=== PATIENT | male | born 1975 | race Caucasian/White ===

== ENCOUNTER → 2024-08-18 09:26 | Outpatient (REF) | payer SELFPAY | LOC: RAD 09:26 | PROVIDERS: ATTENDING PHYSICIAN Nurse Practitioner | DX: E78.2 Mixed hyperlipidemia (principal) | CPT/HCPCS: 75571 ==

== ENCOUNTER 2025-05-26 22:54 | Observation (INO) | payer OTHER, SELFPAY ==
[2025-05-26] VITALS (13 sets, daily range): BP systolic 119–170; BP diastolic 73–108; BMI 38.3
[2025-05-26 18:17] LABS: Hematocrit 51.6 % (39.0-52.0); Hemoglobin 17.2 g/dL (13.0-18.0); Mean Corp Hgb Conc. 33.3 g/dL (33.0-37.0); Mean Corpuscular Volume 82.0 fL (80.0-94.0); Nucleated Red Blood Cells % 0 % (-); Platelet Count 197 10^3/uL (130-400); Red Cell Dist. Width 16.0 % (11.5-14.5)
[2025-05-26 18:26] LABS: APTT 24.8 Sec (23.4-35.0); INR 0.92; PT 12.8 Sec (11.4-14.6)
[2025-05-26 18:33] LABS: ALT (SGPT) 38 U/L (0-50); AST (SGOT) 23 U/L (17-59); Albumin 4.7 g/dl (3.5-5.0); Alkaline Phosphatase 42 U/L (38-126); Blood Urea Nitrogen 14 mg/dl (9-20); Calcium 9.4 mg/dl (8.4-10.2); Carbon Dioxide 28 mmol/L (22-30); Chloride 103 mmol/L (98-107); Glucose 95 mg/dl (70-99); Potassium 4.2 mmol/L (3.5-5.1); Sodium 138 mmol/L (135-145); Total Protein 6.9 g/dl (6.3-8.2); eGFR > 60.00
--- NOTE | 2025-05-26 18:40 | ED.CVA ---
History of Present Illness
General
Chief Complaint: CVA/TIA Symptoms
Source: patient
Exam Limitations: none
Time Seen by Provider: 05/26/25 18:11
Nursing documentation reviewed up to this point in time: agreed with
Onset of Stroke Symptoms
Onset of symptoms known: Yes
Date of onset of symptoms: 05/26/25
Time of onset of symptoms: 15:00
History of Present Illness
History of Present Illness:
Patient with history of hypertension, presents to ED secondary to sudden onset of dizziness around 3 PM while he was at home on a conference call. Approximately 30 minutes afterwards, he started to feel numbness on the right side of his face and
right arm. Denies headache. Denies weakness. Denies difficulty with speech or swallowing. Denies difficulty with ambulation. Numbness sensation has been intermittent since onset, but never gone away completely. Denies previous history of
similar symptoms. Patient had cold-like symptoms last week.
Past History
Past History
ED Past Medical History: None
ED Past Surgical History: None
Social History
Tobacco: Non-smoker
Alcohol: None
Drug: None
Personal:
Living: with family
Employment: Employed
Family History
Family History: Hypertension
Review of Systems
Review of Systems
Allergies reviewed?: Yes
All Other Systems: ROS reviewed and negative except as documented in HPI and ROS
Constitutional: Reports no symptoms
Respiratory: Reports no symptoms
Cardiac: Reports no symptoms
ABD/GI: Reports no symptoms
: Reports no symptoms
Musculoskeletal: Reports no symptoms
Skin: Reports no symptoms
Neurological: Reports dizzy and numbness; Denies headache or weakness
Phy Exam
Physical Exam
Physical Exam:
Physical Exam
General: no apparent distress, not acutely ill. afebrile. overweight
Head: nc/at. eomi
Neck: supple. no meningeal signs.
Heart: s1/s2 regular rate and rhythm
Lungs: no acute respiratory distress. clear bilaterally
Abdomen: normal bowel sounds. not tender.
Neuro: alert and oriented x 3. no focal motor deficit. decreased sensation Left face/LUE. normal speech
Skin: no rash
Psychiatric: well kept. interactive and cooperative
Extremities: no edema. no calf tenderness.
Course
Orders/Labs/Results
Orders:
Orders
05/26/25 18:08
Complete Blood Count/With Diff Urgent
Comprehensive Metabolic Panel Urgent
PTT Urgent
Prothrombin Time Urgent
05/26/25 18:09
CT HEAD STROKE ALERT W/o Cont Urgent
Comment:
Reason For Exam: right sided numbness
05/26/25 18:11
CT BRAIN PERF STROKE ALERT Urgent
Comment:
Reason For Exam: dizziness/right sided numbness
CT HEAD/NECK ANG STROKE ALERT Urgent
Comment:
Reason For Exam: dizziness/right sided numbness
05/26/25 18:12
Electrocardiogram (*1) Urgent
Reason for Study: TIA/Stroke
EKG- Treatment ONCE
05/26/25 19:20
Aspirin 325 mg PO NOW STA
Clopidogrel Bisulfate [Plavix] 600 mg PO NOW STA
05/26/25 22:02
Admit/Transfer Patient As Directed
Co-Sign Provider:
Level of Care: Observation services
Assign to:: Telemetry
Physician / Group: Elvis
Diagnosis: Dizziness / Numbness
Reason for Telemetry: CVA/TIA
Date to Stop Telemetry: 05/29/25
Time to Stop Telemetry: 11:00
05/26/25 22:03
PRN Pain Medication Management As Directed
May give lesser potent ordered pain med per pt: Yes
preference::
Protocol:: Medication orders for pain may be administered in a
manner that supports deferring to patient preference
when the pt is:
- Requesting an ordered lesser potent pain medication.
Least to most potent pain medications are defined
as: acetaminophen < NSAID < tramadol < opioids
(morphine, oxycodone, hydromorphone).
- Requesting a lesser dose of the same medication IF
ORDERED.
- Requesting a less intrusive route of administration
if both routes are prescribed by the provider (PO <
IV).
05/26/25 22:05
Code Status As Directed
Resuscitation Status: Full Code
05/26/25 23:24
Acetaminophen [Tylenol/Feverall] 650 mg RECTAL Q4HPRN PRN
Acetaminophen [Tylenol] 650 mg PO Q4HPRN PRN
05/26/25 23:24
Case Management Consult ONCE
Case Management Consult: Discharge Planning
Comment: stroke/tia
Consult Notification Routine
Specialty to Notify: Neurology
Date consulting provider notified: 05/27/25
Time consulting provider notified: 07:52
Notified:: Provider
Comment: tt
DIETARY IP CONSULT Routine
Reason for Consult: stroke/TIA
NEUROLOGY CONSULT Urgent
Consulting Provider: Carol Walters
Was physician already notified: No
Reason for consult: Dizziness / Numbness
Biology Lecturer Urgent
Activity As Directed
Activity Level: Out of Bed- Chair
NIH Stroke Scale As Directed
Directions: Per protocol
Comment: every shift and with any change in condition or mental status
Neurological Checks As Directed
Frequency: q4h
Additional Instructions:: q4h x 24h upon admission to the floor, then qshift & with any change in condition
and mental status
Patient Education As Directed
Type: Stroke education packet
Comment: provide to patient and family
Pneumatic Compression Sleeves As Directed
Type: Knee high
Swallow Screening CVA/TIA ONLY As Directed
Comment: NPO until swallowing screening completed
If patient FAILS swallow screening:: NPO, Speech Therapy consult, Aspiration Precautions
If patient PASSES swallow screening, diet:: Cholesterol Lowering
Sodium, 2 Gram
Above diet order entered?: Yes- passed screening
Vital Signs As Directed
Frequency: Per unit guidelines
Cpap [RESP] Routine
Patient to use own unit?: Yes
Ot Eval And Treat Routine
Pt Eval And Treat Routine
Activity Level: Out of Bed-Early Mobility
Speech Therapy Eval & Treat Routine
DX Deep Vein Thrombosis Video Routine
05/27/25 06:53
Basic Metabolic Panel IN AM
Cardiovascular Evaluation IN AM
Complete Blood Count/No Diff IN AM
Glycohemoglobin (HgbA1c) IN AM
Magnesium IN AM
05/27/25 08:00
Aspirin Chewable [Low Strength Aspirin] 81 mg PO DAILY
Clopidogrel Bisulfate [Plavix] 75 mg PO DAILY
Lisinopril [Zestril] 40 mg PO DAILY
05/27/25 18:00
Atorvastatin [Lipitor] 40 mg PO QPM
05/29/25 11:00
DC Protocol for Telemetry ONCE
Abnormal Lab Results
05/26/25
18:08
WBC 13.0 H 10^3/uL
(4.8-10.8)
RBC 6.29 H 10^6/uL
(4.70-6.10)
RDW 16.0 H %
(11.5-14.5)
MPV 11.5 H fL
(7.4-10.4)
Absolute Neuts (auto) 8.8 H 10^3/uL
(1.4-6.5)
Absolute Monos (auto) 1.1 H 10^3/uL
(0.1-0.6)
05/26/25 18:08
09/24/25 18:08
Vital Signs
Initial and Last Documented VS:
Initial Vital Signs
Pulse Resp BP Pulse Ox
78 18 168/94 98
05/26/25 18:06 05/26/25 18:06 05/26/25 18:06 05/26/25 18:06
Last Documented Vital Signs
Temp Pulse Resp BP Pulse Ox
97.5 F 62 16 148/95 97
05/27/25 07:25 05/27/25 07:42 05/27/25 07:25 05/27/25 07:42 05/27/25 07:25
MDM/Problems Addressed
MDM/Problems Addressed:
CT head: NAD.
Discussed with [place] stroke fellow (Teresa) - recommends starting patient on asa/plavix along with admission for cva workup. Does not recommend TnK
*Pulse Oximetry
SaO2: 97
Oxygen Mode of Delivery: Room air
Patient hypoxic: no
*EKG
Interpreted by ED Provider?: Yes
EKG Intrepretation Date: 05/26/25
Heart Rate: 73
Rate: normal
Rhythm: sinus
[place]: normal axis
*Critical Care Note
Total Time (30-74mins, 75-104mins- exclusive of procedures): Not Applicable
ED Attending Note
-
Portions of this chart may have been created with voice recognition software.� Occasional wrong word or��sound alike� substitutions may have occurred due to the inherent limitations of voice recognition software.
Discharge Plan
Departure
Patient Disposition: Admit
Date of Disposition: 05/26/25
Time of Disposition: 19:13
Admit to: Telemetry
Presentation/result/management discussed w/ accepting MD/DO: Hospitalist
Discharge Problem:
Acute CVA (cerebrovascular accident)
Interventions
Interventions:
*Risk Screen - Suicide Last Done: 05/26/25 18:14
*General Assessment Last Done: 05/26/25 18:14
*Neglect/Abuse Screening Last Done: 05/26/25 18:14
*ED- Fall Risk Assessment Last Done: 05/26/25 18:14
*ED COVID-19 Vaccine History Last Done: 05/26/25 18:14
*Nursing Disposition Last Done: 05/26/25 23:20
ED- Pulmonary Assessment Last Done: 05/26/25 18:14
ED- Neurological Assessment Last Done: 05/26/25 18:14
ED- Cardiac Assessment Last Done: 05/26/25 18:14
ED Swallowing Screen Last Done: 05/26/25 19:25
Discharge Date and Time
Discharge Date/Time: 05/26/25 23:20
[2025-05-26] MEDS: ASPIRIN 325 MG PO (19:26)
[2025-05-26] MEDS: PLAVIX 600 MG PO (19:26)
--- NOTE | 2025-05-26 21:49 | HPS.HSE ---
Addendum entered and electronically signed by Jackson Leal DO 05/26/25 23:58:
Patient seen and examined independently. Agree with findings and plan as set forth by Khushbu Carreno PA-C.
Patient is a 50y M with PMH significant for hypertension and obesity who presents to ED complaining of numbness and tingling of the R face and arm. Patient reports feeling 'dizzy' sensation - but no room spinning. No noted slurred speech or
word-finding difficulties. No vision changes. Mild headache. Patient denies any prior h/o similar symptoms.
He has positive family history of CVA.
In the ED, patient states that his symptoms have improved and he denies any persistent numbness / tingling / dizzines / etc.
Ass:
CVA / TIA
Hypertension
Obesity due to excess calories
PEREZ on CPAP
Plan;
Observe overnight for further evaluation and treatment.
DAPT, start statin therapy.
Check lipids, A1C, etc.
MRI in AM.
Follow neurologic exam for any new / recurrent symptoms.
Neurology evaluation for additional recommendations.
Usual CPAP at HS (home machine).
Encourage efforts at weight loss.
Original Note:
Family Physician
-
Family Physician: Chang Cárdenas
Chief Complaint
-
Dizziness and Right Sided Numbness
History of Present Illness
Patient is a 50 y/o male past medical history of morbid obesity, and hypertension who presents with dizziness and right sided numbness. Patient developed acute onset of dizziness around 3PM this afternoon which lasted a few minutes. He describes
that as more of an off balance sensation, not vertigo. About 30 minutes afterwards he started to feel numb on the right side of his face as well as his right arm. He denies focal weakness. He denies difficulty with speech. He denies prior similar
episodes in the past.
Medical History
Past Medical History
Past Medical History: Reports Other
Additional Past Medical History:
Essential Hypertension
Hyperlipidemia
Impaired Fasting Glucose
Obstructive Sleep Apnea
Morbid Obesity due to Excess Calories
Past Surgical History: Reports Orthopedic
Social History
Tobacco: Non-smoker
Alcohol: Occasional
Family History
Family History: Hypertension and Other (Maternal Grandfather with Stroke)
Allergies / Home Medications
Allergies reflects when Allergies were last updated in [facility].
Home Medications with original date entered in [facility]
Allergy/Medication List:
Allergies
Allergy/AdvReac Type Severity Reaction Status Date / Time
No Known Allergies Allergy Verified 08/28/22 11:32
Home Medications
lisinopril 40 mg tablet 40 mg PO DAILY 05/26/25
tirzepatide (weight loss) 5 mg/0.5 mL subcutaneous pen injector (Zepbound) 5 mg SC ROSE 05/26/25
Review of Systems
-
A 12 point ROS was completed and negative except as noted: Yes
Constitutional: Denies Fever
Respiratory: Denies Cough or Trouble Breathing
Cardiac: Denies Chest Pain or Palpitations
Neurological: Reports See HPI
Physical Exam
Vital Signs
Vital Signs
Temp Pulse Resp BP Pulse Ox
97.7 F 69 17 170/98 96
05/26/25 18:41 05/26/25 21:30 05/26/25 21:30 05/26/25 20:30 05/26/25 21:22
Physical Exam
General: Well Developed, Well Nourished and No Apparent Distress
HEENT: NormoCephalic, Anicteric, Moist mucous membranes and Atraumatic
Respiratory: Clear and Non Labored Respirations; No Wheezes, Rales or Rhonchi
Cardiac: S1/S2 and Regular Rhythm; No Murmur
GI: Soft, Non Tender, Non Distended and Normal Bowel Sounds
Rectal: Deferred by Provider
Musculoskeletal: No Clubbing, No Cyanosis and No Edema
Skin: Warm and Dry; No Rash
Neuro: Awake, Alert, Oriented, No Motor Deficits and Other (Decreased sensation right face and right upper extremity)
Psych: Calm
Laboratory Results
-
05/26/25 18:08
05/26/25 18:08
Laboratory Results
PT 12.8 Sec (11.4-14.6) 05/26/25 18:08
INR 0.92 05/26/25 18:08
APTT 24.8 Sec (23.4-35.0) 05/26/25 18:08
Total Bilirubin 0.7 mg/dl (0.2-1.3) 05/26/25 18:08
AST 23 U/L (17-59) 05/26/25 18:08
ALT 38 U/L (0-50) 05/26/25 18:08
Alkaline Phosphatase 42 U/L (38-126) 05/26/25 18:[address]:
No acute intracranial pathology.
Head/Neck CTA:
Limited exam. See above. No gross M1 nor proximal M2 occlusion.
Less than 50% distal right common carotid artery stenosis.
Data Reviewed
-
CT Scan: Report Reviewed by me
Lab Data: Labs Reviewed by me
Impression/Plan
-
Dizziness with Right Sided Numbness concern for acute stroke
-Consult Neurology
-Check Brain MRI
-Continue aspirin and Plavix
-Start atorvastatin
-Check HgbA1c and Lipid Panel
-Consult PT/OT and Speech Therapy
Essential Hypertension
-Allow for permissive hypertension for 24H after onset of symptoms
-Continue lisinopril
Morbid Obesity due to Excess Calories
-Patient has been using Zepbound as outpatient
-Continue to encourage weight loss
-Affects all aspects of care
Obstructive Sleep Apnea
-Continue CPAP - Patient brought from home
DVT proph: SCDs
Code Status: Full Code
[2025-05-27 03:31] VITALS: BP 129/70
[2025-05-27 07:25] VITALS: BP 148/95
[2025-05-27 07:33] LABS: Hematocrit 50.0 % (39.0-52.0); Hemoglobin 17.3 g/dL (13.0-18.0); Mean Corp Hgb Conc. 34.6 g/dL (33.0-37.0); Mean Corpuscular Volume 82.2 fL (80.0-94.0); Platelet Count 180 10^3/uL (130-400); Red Cell Dist. Width 15.6 % (11.5-14.5)
[2025-05-27] MEDS: ZESTRIL 40 MG PO (07:42)
[2025-05-27] MEDS: PLAVIX 75 MG PO (07:43)
[2025-05-27] MEDS: LOW STRENGTH ASPIRIN 81 MG PO (07:43)
[2025-05-27 07:48] LABS: Blood Urea Nitrogen 15 mg/dl (9-20); Calcium 9.5 mg/dl (8.4-10.2); Carbon Dioxide 23 mmol/L (22-30); Chloride 107 mmol/L (98-107); Estimated Creatinine Clearance 115 ml/min; Glucose 94 mg/dl (70-99); HDL Cholesterol 43 mg/dl; LDL Cholesterol, Calculated 105 mg/dl; Magnesium 2.0 mg/dl (1.6-2.3); Potassium 4.3 mmol/L (3.5-5.1); Sodium 138 mmol/L (135-145); Very Low Density Lipoprotein 34 mg/dl (0-30); eGFR > 60.00
--- NOTE | 2025-05-27 08:03 | W.PN.HOSP.TC ---
Today's Communication/Plan
-
Brain MRI
Neurology and ENT consult
Add Claritin and nasal saline
Assessment / Plan
Assessment / Plan
Patient is a pleasant 50-year-old male with past medical history of essential hypertension, and is recently started on weight loss medication for obesity. He had recently been to [place], returned back on a 4-hour flight late at night, did not eat
well and was in his office on a conference call the next day when he started to feel dizziness which he was not concerned about since he thought he was exhausted. But then later he developed numbness of his right face which then went down the right
arm and that is when he became concerned. He walked around in the office and that helped his symptoms go away and then he sat again and the symptoms came back. The symptoms were cyclical on and off the last evening. He has been recovering from a
recent cold and feels like that could be a contributory factor.
His symptoms resolved last night and currently he feels fine. Denies any fevers chills, shortness of breath, chest pain, palpitations, dizziness or any other issues.
A CT of the head was done in the ER which was normal, a CT of head and neck showed right carotid artery stenosis of 50%. His cholesterol levels are fairly fine except for triglycerides of 174 which she was started on statin. His HbA1c is pending
his blood pressure remains slightly on the higher side during the hospital stay that he feels it is due to being in the hospital. Currently his blood pressure looks good and he is asymptomatic.
Brain MRI is pending
Neurology recommendations are pending, currently patient is on dual antiplatelet therapy.
Assessment/plan
#Transient ischemic attack
Given the cyclical nature of the symptoms, an acute occlusion of cerebral arteries seems unlikely
CT head normal, head and neck CT shows right carotid artery stenosis of 50%
Brain MRI pending,HbA1c pending
Lipid profile shows mild elevation in triglyceride levels
Controlled risk factors
Neurology evaluation for dual antiplatelet therapy requirement
Continue to monitor blood pressure
Neurochecks
#Essential hypertension
Monitor blood pressure
Continue home medications
#Obesity
Affects all aspects of care
Patient is on tirzepatide, recently started
Follow-up with primary care physician
# Postnasal drip
Add Claritin and nasal saline
Consult ENT
CODE STATUS-full code
DVT prophylaxis-sequential compression devices
Anticipated Discharge: Within 24 hours
Subjective/Interval History
-
Date of Service: May 27, 2025
Patient seen and examined at bedside
Alert, oriented
Denies any numbness/tingling of right side of face or arm at this time
Review of systems is negative
Objective Data
-
Labs:
Laboratory Results
05/27/25
06:53
WBC 9.4
Hgb 17.3
Hct 50.0
Plt Count 180
Sodium 138
Potassium 4.3
Chloride 107
Carbon Dioxide 23
BUN 15
Creatinine 1.1
Glucose 94
Calcium 9.5
Vital Signs:
Vital Signs
Temp Pulse Resp BP Pulse Ox
98.2 F 62 18 148/95 97
05/27/25 03:31 05/27/25 07:42 05/27/25 03:31 05/27/25 07:42 05/27/25 03:31
Review of Systems
-
All other systems: Reviewed and negative
Physical Exam
-
General: Well Developed, Well Nourished, No Apparent Distress and Comfortable
HEENT: Normocephalic, Atraumatic and Moist Mucous Membranes
Respiratory: Clear to Auscultation; Negative Wheezes, Rales or Rhonchi
Cardiac: Regular Rhythm and S1/S2
GI: Soft, Nontender, Nondistended and Normal Bowel Sounds
Musculoskeletal: No Clubbing, No Cyanosis and No Edema
Skin: Warm and Dry
Neuro: Awake, AO x 3, Nonfocal/Grossly Intact and No Sensory Deficits
Psych: Calm
--- NOTE | 2025-05-27 09:14 | CON.NEURO4 ---
Addendum entered and electronically signed by Kolby Sigala MD 05/27/25 12:26:
Studies reviewed.
I have personally examined the patient. I reviewed and agree with the COMBINATION MACHINE TENDER's Note.
My addenda:
Awake, alert, interactive. No acute distress.
Speech intact.
Follows 2-step requests w/o difficulty. No tremor.
Extra-ocular movements grossly intact.
Facial movements full and symmetric. Hearing intact to normal conversational volume.
Normal UE movements bilaterally.
Neck: full ROM.
Chest: no dyspnea
Heart: no JVD
Ext: (-) Clubbing, (-) Cyanosis, (-) Edema
IMPRESSIONS/RECOMMENDATIONS:
Abrupt onset of right upper extremity and right facial sensation change. Differential diagnosis includes migraine with aura, TIA, metabolic abnormalities producing symptoms
Check blood work for potential metabolic causes
Check MRI for potential structural abnormalities producing symptoms although this likely
Provide prochlorperazine if the patient has an additional event
If no structural abnormalities by MRI, would discontinue all antiplatelet therapies
Patient currently unwilling to use anticholesterol agent at this time
D/W patient
All questions answered.
Will continue to follow pending results.
Original Note:
Documented by User: Edilia Hicks NP 05/27/25 11:40
Consultation - Neurology 4
-
CONSULTING PHYSICIAN: Kolby Sigala MD
REFERRING PHYSICIAN: Hospitalists/Khushbu Carreno PA-C
DICTATED BY: BRIA Tan
DATE/TIME OF REQUEST: 05/26/25
DATE/TIME OF CONSULTATION: 05/27/25
Reason for Consultation: Right-sided numbness
History of Present Illness:
This is a 50-year-old left-handed male who has presented to the hospital with report of right-sided paresthesias. Patient reports that two nights ago on 05/25/25 he got home very late from a flight and didn't get a lot of sleep. Yesterday (05/26/25)
he was on a conference call in the afternoon when he reports developing a 'wave of dizziness' that he describes as 'off balance' lasting 2-3 minutes before resolving. 30 minutes later he notes that the right side of his mouth started feeling numb
like novocaine, then his entire right arm became numb as well. This resolved after about 15 minutes once he was up and moving, but he sat down and reports it started again after 30 minutes, prompting him to come to the ER for evaluation. CT head,
CTA head/neck, and CT brain perfusion were obtained and are negative for any acute abnormalities. By 1829 all of his symptoms had resolved and did not return again. He was not a candidate for TNK/IAT due to low NIHSS, no LVO. He denies any headache,
vision changes, speech/swallow difficulty, and weakness. He denies any events like this in the past. He does note a significant history of migraine with aura. He notes having severe frequent headaches growing up associated wtih seeing wavy line or
prisms of color. He has made lifestyle changes in the past decade and notes now he only has a migraine about 3-4 times per year.
Past Medical History: HTN, HLD, morbid obesity, PEREZ, migraine with aura, impaired fasting glucose
Surgical History: Orthopedic
Family History: Maternal grandfather- stroke.
Social History: Occasional alcohol. Denies tobacco and illicit drug use.
Allergies: No known allergies.
Home Medications: See below.
Review of Symptoms:
Patient denies any fever, headache, chest pain, shortness of breath, GI or symptoms.
�Per the HPI.�All systems are reviewed negative except above.
Physical Exam:
The patient is afebrile, abdomen is nondistended, breathing is unlabored, skin is warm and dry, no edema.
NIH Stroke Scale:
I performed the NIH stroke scale on the patient on 05/27/25 at 0915. The patient scored 0 points on the NIH stroke scale assessment, which were assigned as follows: See below.
Neurologic Examination:
The patient is awake, alert and oriented x 3. He is able to follow commands and answer questions appropriately. There is no aphasia or dysarthria. On cranial nerve assessment, pupils are 3 mm bilateral, round and reactive to light and
accommodation. Visual nicole are full. Extraocular movements are intact. Facial sensations are intact and bilaterally symmetrical, there is no facial asymmetry. Hearing is intact bilaterally to normal conversation volume. Tongue palate and uvula are
midline. Sternocleidomastoid strengths are full bilaterally. Motor strengths are 5/5 bilateral upper and lower extremities on medical research Inman scale. There is no drift or involuntary movement noted. Deep tendon reflexes are 2+ bilateral
upper and lower extremities and Babinski is absent bilaterally. There was no extinction noted on double simultaneous stimulation. Coordination is intact by finger to nose bilaterally.
Lab Results: See below.
Neuro Imaging:
1. CT Head 05/26/25: No acute intracranial pathology. Moderate nonacute sinusitis. ASPECT score: 10.
2. CTA Head/Neck 05/26/25: Limited exam. See above. No gross M1 nor proximal M2 occlusion. Less than 50% distal right common carotid artery stenosis.
3. CT Perfusion 05/26/25: No core or penumbra noted.
Differentials for the patient's presentation include:
1. Transient dizziness and paresthesias; uncertain etiology, possibly migraine with aura but given absence of headache, TIA or small ischemic stroke is possible. Ferritin level is also severely low at 10, this could potentially be contributing to
symptoms.
Patient has the following risk factors for their symptoms: obesity, HTN, HLD
IV Tenecteplase/IAT candidacy: He was not a candidate for TNK/IAT due to low NIHSS, no LVO.
Recommendations:
-Continue newly initiated DAPT with aspirin and clopidogrel daily for 21 days. After 21 days stop clopidogrel and continue aspirin monotherapy.
-MRI brain noncontrast pending.
-Provide IV iron x1 now, start oral ferrous sulfate 325mg daily.
-Goal normotension.
-LDL goal <70. LDL is 155. Continue newly initiated atorvastatin 40mg daily.
-Goal normoglycemia, hbA1c is 5.3.
-NIHSS and neurological checks per unit guidelines.
-Provide patient with a stroke education packet.
-DVT prophylaxis.
Discussed patient care with: Dr. Sigala, the patient
Vital Signs and Labs
-
Vital Signs and Labs:
Vital Signs
Temp Pulse Resp BP Pulse Ox
97.5 F 62 16 148/95 97
05/27/25 07:25 05/27/25 07:42 05/27/25 07:25 05/27/25 07:42 05/27/25 07:25
Lab Results
05/27/25 06:53
05/27/25 06:53
PT 12.8 Sec (11.4-14.6) 05/26/25 18:08
INR 0.92 05/26/25 18:08
APTT 24.8 Sec (23.4-35.0) 05/26/25 18:08
Sodium 138 mmol/L (135-145) 05/27/25 06:53
Potassium 4.3 mmol/L (3.5-5.1) 05/27/25 06:53
BUN 15 mg/dl (9-20) 05/27/25 06:53
Glucose 94 mg/dl (70-99) 05/27/25 06:53
Calcium 9.5 mg/dl (8.4-10.2) 05/27/25 06:53
LDL Cholesterol, Calc 105 mg/dl 05/27/25 06:53
Medications
-
Active Medications
Generic Name Dose Route Start Last Admin
Trade Name Freq PRN Reason Stop Dose Admin
Acetaminophen 650 mg 05/26/25 23:24
Acetaminophen 650 Mg Rectal Suppository RECTAL 06/23/25 23:23
Q4HPRN PRN
AMEZCUA, mild pain, or temp >100.4F
Acetaminophen 650 mg 05/26/25 23:24
Acetaminophen 325 Mg Tablet PO 06/23/25 23:23
Q4HPRN PRN
AMEZCUA, mild pain, or temp >100.4F
Aspirin 81 mg 05/27/25 08:00 05/27/25 07:43
Aspirin 81 Mg Chewable Tablet PO 06/24/25 07:59 81 mg
DAILY CARLY Administration
Atorvastatin Calcium 40 mg 05/27/25 18:00
Atorvastatin (Lipitor) 40 Mg Tablet PO 06/24/25 17:59
QPM CARLY
Clopidogrel Bisulfate 75 mg 05/27/25 08:00 05/27/25 07:43
Clopidogrel 75 Mg Tablet PO 06/24/25 07:59 75 mg
DAILY CARLY Administration
Lisinopril 40 mg 05/27/25 08:00 05/27/25 07:42
Lisinopril 20 Mg Tablet PO 06/24/25 07:59 40 mg
DAILY CARLY Administration
Home Medications
�Medication �Instructions �Recorded
lisinopril 40 mg tablet 40 mg PO DAILY Blood Pressure 05/26/25
tirzepatide (weight loss) 5 mg/0.5 5 mg SC ROSE Diabetes 05/26/25
mL subcutaneous pen injector
(Zepbound)
NIH Stroke Score
Subsequent NIH Scale
Date of Subsequent NIH Scale: 05/27/25
Time of Subsequent NIH Scale: 09:15
NIH Stroke Score
Level of Consciousness: 0 - Alert
LOC Questions: 0-Answers both correctly
LOC Commands: 0-Performs both correctly
Best Horizontal Gaze: 0-Normal
Visual Nicole: 0=Normal, no visual loss
Facial Palsy: 0=Normal, symmetrical
Motor - Right Arm: 0=No drift 10 seconds
Motor - Left Arm: 0=No drift 10 seconds
Motor - Right Le-No drift 5 seconds
Motor - Left Le-No drift 5 seconds
Limb Ataxia: 0-Absent
Sensation: 0-Normal
Best Language: 0-No aphasia
Dysarthria: 0-Normal
Extinction and Inattention: 0-No abnormality
NIH Total Score:: 0
Modified [place] (mRS) Score
Modified [place] Scale (mRS): No symptoms
Score: 0
Alteplase Contraindication
Inclusion and Exclusion criteria reviewed: Yes

Documented by User: Kolby Sigala MD 05/27/25 12:17
NIH Stroke Score
NIH Stroke Score
NIH Total Score:: 0
Modified Loren (mRS) Score
Score: 0
[2025-05-27 10:52] LABS: Ferritin 10.4 ng/ml (17.9-464.0)
[2025-05-27 11:20] VITALS: BP 141/92
[2025-05-27 11:23] LABS: Folate 12.1 ng/ml (2.76-20); Vitamin B12 642 pg/ml (239-931)
[2025-05-27 11:28] LABS: Glycohemoglobin (HgbA1c) 5.3 % (4.0-5.6)
--- NOTE | 2025-05-27 11:32 | CM ---
Patient seen bedside, initial assessment completed. Patient is a 50y M with PMH significant for hypertension and obesity who presents to ED complaining of numbness and tingling of the R face and arm.
Patient resides w/ spouse and their 3 children in a 3STH, 1 step to enter from the outside. Patient is independent in all areas. Patient has a CPAP that he uses at night. Denies SNF/HC hx. OP therapy hx for sports injuries.
Address, point of contact and insurance verified
PCP: Chang Cárdenas
Pharmacy: [facility]
Patient admitted under obs services. OOBS form verbally reviewed, copy provided, copy on chart
Follow up PT note: Patient is ambulatory, not having any issues w/ mobility. Awaiting MRI results for TIA vs CVA. OP therapy was discussed if there's any lasting deficits
Plan: Home, no needs
[2025-05-27] MEDS: CLARITIN 10 MG PO (12:56)
[2025-05-27] MEDS: OCEAN, SALINE MIST 1 SPRAYS NASAL (12:56)
[2025-05-27] MEDS: FERRLECIT 110 MG IV (14:52)
[2025-05-27 15:00] VITALS: BP 164/103
[2025-05-27 15:05] VITALS: BP 166/107
--- NOTE | 2025-05-27 15:09 | CON.MD ---
Consultation - Medical
-
Dizziness , numbness
also c cough
Hx of HTN - on Lisinopril, does not smoke
Developed few minutes of imbalance, no vertigo while sitting at work
Also R facial and arm numbness - presented to ER , no Headache
CTA and CT negative, less than 50% blockage of carotid
Sx resolved
Also c some PND and chronic cough
Some mild scattered mucosal thickening in sinuses
A/P Dizziness and numbness - resolved
Neuro exam nonfocal - possible TIA
Some mild sinus thickening , some post nasal drip and cough
May have resolving URI or allergies, possible GERD
Has been seen in our office previously, can follow up as outpt
--- NOTE | 2025-05-27 15:23 | W.DCSUMMARY ---
Discharge Summary
Discharge Data
Date of Admission: 05/26/25
Date of Discharge: 05/27/25
-
Pending Results: No
Hospital Course
50 y/o male past medical history of morbid obesity, and hypertension
Presented with right-sided paresthesias associated with dizziness and feeling off balance lasting for 2 to 3 minutes before resolving. Neuroimaging as below. BEcause of concern for TIA/CVA started on DAPT and Statin. Since MRI was not consistent
with CVA, neuro rec to DC DAPT. Lipid panel with LDL of 105, neuro rec anticholestrol agent however declined. Neuro did rec Oral iron supplementation. Evaled by ENT for potential concern of sinusitis and requiring otic tubes previously for a similar
event. Did not believe this was a concern at this time, suspect mild resolving URI with Allergies. No acute interventions provided. ENT recommended if this reoccurs then follow-up as outpatient. Provide nasal saline along with antihistamine for
nonacute sinusitis.
CTBrain
IMPRESSION:
No acute intracranial pathology.
Moderate nonacute sinusitis.
CTHead and Neck
IMPRESSION: Limited exam. See above. No gross M1 nor proximal M2 occlusion.
Less than 50% distal right common carotid artery stenosis.
Brain MRI
IMPRESSION:
No acute intracranial abnormality noted.
Discharge Plan
-
Patient Disposition: Home (Routine Discharge)
Discharge Diagnosis/Procedures: Transient ischemic attack
Diet: Regular
Activity: As tolerated
Driving Restrictions: As prior to admission
Bathing Restrictions: OK to Shower
Activity Restrictions/Additional Instructions:
Presented with right-sided paresthesias associated with dizziness and feeling off balance lasting for 2 to 3 minutes before resolving. Neuroimaging as below. BEcause of concern for TIA/CVA started on DAPT and Statin. Since MRI was not consistent
with CVA, neuro rec to DC DAPT. Lipid panel with LDL of 105, neuro rec anticholestrol agent however declined. Neuro did rec Oral iron supplementation. Evaled by ENT for potential concern of sinusitis and requiring otic tubes previously for a similar
event. Did not believe this was a concern at this time, suspect mild resolving URI with Allergies. No acute interventions provided. ENT recommended if this reoccurs then follow-up as outpatient. Provide nasal saline along with antihistamine for
nonacute sinusitis.
CTBrain
IMPRESSION:
No acute intracranial pathology.
Moderate nonacute sinusitis.
CTHead and Neck
IMPRESSION: Limited exam. See above. No gross M1 nor proximal M2 occlusion.
Less than 50% distal right common carotid artery stenosis.
Brain MRI
IMPRESSION:
No acute intracranial abnormality noted.
Referrals:
Chang Cárdenas MD [Family Provider, [facility]] - in less than 1 week
Prescriptions:
New
ferrous sulfate [FeroSul] 325 mg (65 mg iron) Tablet
325 mg PO HS Qty: 30 0RF
loratadine 10 mg Tablet
10 mg PO DAILY Qty: 30 0RF
Saline Nasal 0.65 % Aerosol,Wall
1 spray intranasal QIDPRN PRN (Reason: postnasal drip,sinusitis) Qty: 44 0RF
Continued
lisinopril 40 mg Tablet
40 mg PO DAILY
Zepbound 5 mg/0.5 mL Pen Injector
5 mg SC ROSE
Discharge Orders:
Discharge Patient (As Directed); Ordered 05/27/25
Ordered By: Rodolfo Vega
Discharge Date and Time
Print Language: [place] CITIZ[place]
--- NOTE | 2025-05-27 16:12 | PTCARENOTE ---
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 Patient b/p 166/107, and 164/103.
== END 2025-05-27 16:06 | disposition home or self-care (01) ==
LOC: 4 EAST ACU 22:54
PROVIDERS: Physician Assistant Medical; ADMITTING PHYSICIAN Hospitalist; ATTENDING PHYSICIAN Hospitalist; CONSULT PHYSICIAN Otolaryngology; EMERGENCY PHYSICIAN Emergency Medicine; FAMILY PHYSICIAN Family Medicine; OTHER PHYSICIAN Psychiatry & Neurology Neurology
DX: G45.9 Transient cerebral ischemic attack, unspecified (principal); E66.01 Morbid (severe) obesity due to excess calories; G43.909 Migraine, unspecified, not intractable, without status migrainosus; G47.33 Obstructive sleep apnea (adult) (pediatric); Z79.899 Other long term (current) drug therapy; J32.9 Chronic sinusitis, unspecified; Z68.38 Body mass index [BMI] 38.0-38.9, adult; I10 Essential (primary) hypertension; Z79.02 Long term (current) use of antithrombotics/antiplatelets; E78.5 Hyperlipidemia, unspecified
CPT/HCPCS: 0042T; 70450; 70496; 70498; 70551; 80048; 80053; 80061; 82607; 82728; 82746; 83036; 83735; 84443; 85025; 85027; 85610; 85730; 93005; 93306; 99285; G0378; J2916; Q9967